=== PATIENT | female | born 1940 | race Two or more races ===

== ENCOUNTER 2017-04-08 12:55 | Emergency (ER) | payer MEDICARE, BC ==
[~2017-04-08] VITALS: Ht 154.9 cm; Wt 77.0 kg
[~2017-04-08 12:55] MED LIST: AMBI10TA PO; NAPR550 PO; OMEP20TA OR
[2017-04-08 13:01] VITALS: BP 124/78; PULSE 73; RESP 14; TEMP 98; O2SAT 98
[2017-04-08 13:35] LABS: BLOOD, URINE TRACE (NEG); GLUCOSE,URINE NEG (NEG); KETONE, URINE NEG (NEG)
[2017-04-08 13:37] LABS: METHOD OF COLLECTION CLEAN CATCH; NITRITE,URINE POS (NEG); URINE COLOR YELLOW (YELLW/STRAW)
[2017-04-08 13:39] LABS: BACTERIA, URINE OCC /hpf; COMMENT (UR) CULTURE INDICATED; CULTURE IF INDICATED CULTURE INDICATED; RBC, URINE 0-3 /hpf (0-3); SQUAMOUS EPITHELIAL CELL URINE 0-5 /hpf (0-5); WBC, URINE 0-2 /hpf (0-5)
--- NOTE | 2017-04-08 14:26 | PD ---
HPI Chief Complaint: Complaint Time Seen by Provider: 14:00 Travel History International Travel<30 days: No Contact w/Intl Traveler<30days: No Traveled to known affect area: No History of Present Illness HPI 76-year-old female presents emergency department for evaluation of urinary frequency, dysuria, urgency for 4 days. She reports the symptoms are similar to previous UTIs in the past. She denies flank or back pain, fever or chills/ sweating, nausea or vomiting. She denies any past medical history. No allergies. PFSH Past Medical History Medical History: Denies Significant Hx Arthritis: Yes Diabetes: No Diminished Hearing: No Diverticulitis: Yes Immunizations Current: No PNEUMOCCOCAL Vaccine (Year): 2009 Past Surgical History Cholecystectomy: Yes Hysterectomy: Yes Social History Alcohol Use: No Tobacco Use: No Substance Use: No Allergies-Medications (Allergen,Severity, Reaction): Coded Allergies: No Known Allergies (Verified , 04/08/17) Reported Meds & Prescriptions Reported Meds & Active Scripts Active No Active Prescriptions or Reported Medications Review of Systems Except as stated in HPI: all other systems reviewed are Neg Physical Exam Narrative GENERAL: Alert, well-appearing female. SKIN: Focused skin assessment warm/dry. HEAD: Atraumatic. Normocephalic. EYES: Pupils equal and round. No scleral icterus. No injection or drainage. ENT: No nasal bleeding or discharge. Mucous membranes pink and moist. NECK: Trachea midline. No JVD. CARDIOVASCULAR: Regular rate and rhythm. No murmur appreciated. RESPIRATORY: No accessory muscle use. Clear to auscultation. Breath sounds equal bilaterally. GASTROINTESTINAL: Abdomen soft, non-tender, nondistended. Hepatic and splenic margins not palpable. No CVA tenderness. MUSCULOSKELETAL: No obvious deformities. No clubbing. No cyanosis. No edema. NEUROLOGICAL: Awake and alert. No obvious cranial nerve deficits. Motor grossly within normal limits. Normal speech. PSYCHIATRIC: Appropriate mood and affect; insight and judgment normal. Data Data Last Documented VS Vital Signs Date Time Temp Pulse Resp B/P Pulse Ox O2 Delivery O2 Flow Rate FiO2 04/08/17 13:01 98.0 73 14 124/78 98 Room Air Orders Urinalysis - C+S If Indicated (04/08/17 13:14) Urine Culture (04/08/17 13:15) Labs Laboratory Tests Test 04/08/17 13:15 Urine Collection Type CLEAN CATCH Urine Color YELLOW Urine Turbidity CLEAR Urine pH 7.0 Urine Specific [place] 1.020 Urine Protein NEG mg/dL Urine Glucose (UA) NEG mg/dL Urine Ketones NEG mg/dL Urine Occult Blood TRACE Urine Nitrite POS Urine Bilirubin NEG Urine Leukocyte Esterase TRACE Urine RBC 0-3 /hpf Urine WBC 0-2 /hpf Urine Squamous Epithelial 0-5 /hpf Cells Urine Bacteria OCC /hpf Microscopic Urinalysis Comment CULTURE INDICATED MDM Medical Decision Making Medical Screen Exam Complete: Yes Emergency Medical Condition: Yes Differential Diagnosis UTI, pyelonephritis, dysuria Narrative Course 76-year-old female presents emergency department for evaluation of UTI like symptoms for 4 days. She denies fever, chills, flank pain, nausea or vomiting. Patient is well-appearing, nontoxic. UA is positive for blood, leukocytes, nitrates, bacteria. Urine culture pending. Patient will be started on Bactrim and instructed to follow-up with her primary doctor. Return precautions discussed. Diagnosis Primary Impression: UTI (urinary tract infection) Qualified Code: N30.01 - Acute cystitis with hematuria Referrals: Primary Care Physician Scripts Sulfamethoxazole-Trimethoprim (Bactrim DS)[id number] Mg Tab1 Tab PO BID #[id number] TAB Prov:Beverley Lee 04/08/17 Disposition: 01 DISCHARGE HOME Condition: Stable Beverley Lee Apr 08, 2017 14:26
[2017-04-08] MEDS ORDERED: BACT800T5 PO (14:30)
== END 2017-04-08 14:40 | disposition home or self-care (01) ==
LOC: PHEFT 12:55
DX: N30.01 Acute cystitis with hematuria (principal); B96.89 Other specified bacterial agents as the cause of diseases classified elsewhere
CPT/HCPCS: 81001; 87086; 99283